=== PATIENT | female | born 1940 | race African-American/Black ===

== ENCOUNTER 2018-08-18 00:58 | Outpatient (CLI) | payer MEDICARE ==
[2018-08-18 12:52] LABS: #Eosinphils 0.1 thou/uL (0.0-0.7); #Lymphocytes 0.9 thou/uL (1.20-3.40); #Monocytes 0.6 thou/uL (0.11-0.59); #Neutrophils 5.6 thou/uL (1.40-6.50); %Basophils 0.1 % (0.0-1.0); %Eosinophils 1.1 % (0.0-10.0); %Lymphocytes 12.2 % (21.0-51.0); %Monocytes 8.2 % (0.0-10.0); %Neutrophils 78.4 % (42.0-75.0); Hemoglobin 11.8 g/dL (12.0-16.0); Mean Corpuscular HGB CONC 31.3 g/dL (32.0-36.0); Mean Corpuscular Hemoglobin 28.5 pg (27.0-31.0); Mean Corpuscular Volume 90.9 fL (78.0-98.0); Mean Platelet Volume 7.6 fL (7.4-10.4); Platelet Count 216 thou/uL (130-400); RBC Distribution Width 13.1 % (11.5-14.5); Red Blood Cell (RBC) Count 4.15 mill/uL (4.20-5.40); White Blood Cell (WBC) Count 7.2 thou/uL (4.8-10.8)
[2018-08-18 13:16] LABS: Anion Gap 12 mmol/L (10-20); BUN (Urea Nitrogen) 12 mg/dL (9.8-20.1); Calc. Creatinine Clearance 0 mL/min (70-130); Calcium 9.8 mg/dL (7.8-10.44); Carbon Dioxide 27 mmol/L (23-31); Chloride 102 mmol/L (98-107); Estimated GFR-MDRD 49; Glucose 122 mg/dL (83-110); Potassium 3.8 mmol/L (3.5-5.1); Sodium 137 mmol/L (136-145)
== END 2018-08-18 00:59 | disposition home or self-care (01) ==
LOC: LABBT 00:58
PROVIDERS: ATTEND Orthopaedic Surgery
DX: Z01.818 Encounter for other preprocedural examination (principal); G56.03 Carpal tunnel syndrome, bilateral upper limbs
CPT/HCPCS: 80048; 85025; 93005; 93010

== ENCOUNTER 2018-08-19 05:46 | Day surgery (SDC) | payer MEDICARE ==
--- NOTE | 2018-08-18 09:28 | HP ---
HISTORY OF PRESENT ILLNESS: The patient is a 78-year-old female with a greater than 1-year history of pain and tingling in both hands, right greater than left without injury. She has numbness in the median nerve distribution and has had persistent symptoms despite rest, restriction of activities, anti-inflammatory medications, splinting, and cortisone injections of the carpal tunnels. Symptoms are now interfering with sleep and day-to-day activities. PAST MEDICAL HISTORY: The patient has history of diabetes, hypertension, hyperlipidemia, and nontoxic goiter. CURRENT MEDICATIONS: Include, 1. Lipitor. 2. Pioglitazone. 3. Amlodipine and valsartan. 4. Calcium and vitamin D. 5. Vitamin B12. 6. Evista. 7. Atenolol. 8. Fish oil. 9. Low-dose aspirin. 10. Multivitamins. 11. Lisinopril. 12. Diclofenac. ALLERGIES: SHE HAS NO KNOWN ALLERGIES. FAMILY HISTORY: Otherwise unremarkable. SOCIAL HISTORY: Otherwise unremarkable. REVIEW OF SYSTEMS: Otherwise unremarkable. PHYSICAL EXAMINATION: GENERAL: A healthy elderly female. HEENT: Unremarkable. NECK: Supple. CHEST: Clear. HEART: Regular rate and rhythm. ABDOMEN: Soft and nontender. PELVIC: Deferred. RECTAL: Deferred. BREASTS: Deferred. EXTREMITIES: Pertinent findings are related to both wrists. There is no definite atrophy. There is no swelling. She has full range of motion bilaterally. She has a positive Tinel sign and negative Phalen test bilaterally. There is subjective numbness in the median nerve distribution, right greater than left. No definite motor deficit. There are palpable distal pulses. Good capillary refill. No instability. DIAGNOSTIC DATA: Electrodiagnostic studies revealed moderate to severe bilateral carpal tunnel syndrome. IMPRESSION: Bilateral carpal tunnel syndrome, right symptomatic more than left. PLAN: Endoscopic possible open right carpal tunnel release. She will require a staged procedure on the left side when she has recovered from the right. The nature of the surgery, length of recovery, and potential complications such as infection, loss of motion, incomplete relief, nerve injury, recurrence, and need for additional treatment and repeat surgery have been discussed in detail. Job ID: [id number]
[2018-08-18 10:28] VITALS: BMI 30.7
[2018-08-19] MEDS ORDERED: CEFAZOLIN 2 GM/50 ML BAG ONE (06:44)
[2018-08-19] MEDS ORDERED: Lidocaine 1% w/Epinephrine 1:100K 20 ML VIAL ONE (06:48)
[2018-08-19] MEDS ORDERED: Lidocaine 1% (PF) 30 ML VIAL ONE (06:48)
[2018-08-19] MEDS ORDERED: Fentanyl 100 MCG/2 ML VIAL ONE (07:24)
[2018-08-19] MEDS ORDERED: Midazolam HCl 2 mg/2 ml Vial ONE (07:24)
--- NOTE | 2018-08-19 09:09 | OP ---
DATE OF PROCEDURE: 08/19/2018 ANESTHESIA: Local plus TIVA. PREOPERATIVE DIAGNOSIS: Right carpal tunnel syndrome. POSTOPERATIVE DIAGNOSIS: Right carpal tunnel syndrome. PROCEDURES PERFORMED: Right endoscopic carpal tunnel release. DESCRIPTION OF PROCEDURE: After satisfactory anesthesia was induced in supine position, the patient was prepped and draped in routine sterile fashion. A field block with 1% lidocaine 10 mL was performed. Right arm was elevated and exsanguinated with an Esmarch bandage and the tourniquet was inflated to 250 mmHg. A 2-cm transverse incision was made in the proximal wrist flexion crease carried down through the subcutaneous tissues. Bleeding points were controlled with Bovie cautery. Using sharp and blunt dissection, a distally based flap at the deep forearm fascia was developed and retracted distally. Palmaris longus tendon was retracted radially. Proximal edge of the deep forearm fascia was split under direct visualization with small scissors to make sure there was no proximal impingement of the median nerve. Synovial elevator was introduced beneath the transverse carpal ligament and the synovium was cleaned from the under surface. Carpal tunnel dilators were inserted. The [employer] endoscopic carpal tunnel system was introduced beneath the transverse carpal ligament in line with the ring finger. The distal edge of the ligament was easily identified and then divided in a distal to proximal direction by pulling the trigger of the assembly and engaging the knife and withdrawing the scope proximally. This was done at several stages to make sure there was complete division of the transverse carpal ligament, which was documented with the video printer. After withdrawing the scope, the carpal tunnel dilator could be inserted into the carpal tunnel with markedly improved passage and subcutaneous position of the instrument. The scope was reintroduced into the carpal tunnel. There was wide separation of the two leaves of the transverse carpal ligament. The tourniquet was released after 4 minutes. There was no excessive bleeding when the scope was withdrawn. The wound was irrigated and then closed with running subcuticular 3-0 nylon and Steri-Strips. Sterile dressing was applied and the patient immobilized in a Velcro wrist splint. She was awakened and taken to the operating room in stable condition. There were no apparent intraoperative complications. The estimated blood loss was negligible. The patient will be discharged home in satisfactory condition with an ice elevation and given written wound care instructions. She was given prescription for tramadol for pain, 30 tablets. She will be rechecked in my office in 10 to 14 days or sooner if there are any problems prior to that time. Job ID: [id number]
[2018-08-19] MEDS ORDERED: PROPOFOL 200 MG/20 ML VIAL ONE (13:08)
== END 2018-08-19 09:15 | disposition home or self-care (01) ==
LOC: SDC 05:46
PROVIDERS: ATTEND Orthopaedic Surgery
PROC: 01N54ZZ Release Median Nerve, Percutaneous Endoscopic Approach (ICD-10-PCS; principal; 2018-08-19)
DX: G56.03 Carpal tunnel syndrome, bilateral upper limbs (principal); I10 Essential (primary) hypertension; E11.9 Type 2 diabetes mellitus without complications; E78.5 Hyperlipidemia, unspecified; E04.9 Nontoxic goiter, unspecified; Z79.82 Long term (current) use of aspirin; Z79.899 Other long term (current) drug therapy
CPT/HCPCS: J2001; J2250; J3010

== ENCOUNTER 2019-02-09 12:48 | Outpatient (CLI) | payer MEDICARE ==
[2019-02-09 13:45] LABS: #Basophils 0.1 thou/uL (0.0-0.2); #Eosinphils 0.1 thou/uL (0.0-0.7); #Lymphocytes 2.6 thou/uL (1.20-3.40); #Monocytes 0.3 thou/uL (0.11-0.59); #Neutrophils 2.1 thou/uL (1.40-6.50); %Basophils 1.2 % (0.0-1.0); %Eosinophils 2.5 % (0.0-10.0); %Monocytes 6.5 % (0.0-10.0); %Neutrophils 40.7 % (42.0-75.0); Mean Corpuscular HGB CONC 31.5 g/dL (32.0-36.0); Mean Corpuscular Hemoglobin 27.9 pg (27.0-31.0); Mean Corpuscular Volume 88.5 fL (78.0-98.0); Mean Platelet Volume 7.3 fL (7.4-10.4); Platelet Count 239 thou/uL (130-400); RBC Distribution Width 12.7 % (11.5-14.5); Red Blood Cell (RBC) Count 4.29 mill/uL (4.20-5.40); White Blood Cell (WBC) Count 5.2 thou/uL (4.8-10.8)
[2019-02-09 14:08] LABS: Anion Gap 13 mmol/L (10-20); BUN (Urea Nitrogen) 17 mg/dL (9.8-20.1); Calc. Creatinine Clearance 0 mL/min (70-130); Calcium 10.4 mg/dL (7.8-10.44); Carbon Dioxide 27 mmol/L (23-31); Chloride 104 mmol/L (98-107); Estimated GFR-MDRD 63; Glucose 81 mg/dL (83-110); Potassium 3.7 mmol/L (3.5-5.1); Sodium 140 mmol/L (136-145)
--- NOTE | 2019-02-09 18:56 | EKG ---
Test Reason : Blood Pressure : / mmHG Vent. Rate : 057 BPM Atrial Rate : 057 BPM P-R Int : 170 ms QRS Dur : 082 ms QT Int : 466 ms P-R-T Axes : 054 035 039 degrees QTc Int : 453 ms Sinus bradycardia Otherwise normal ECG When compared with ECG of 18-AUG-2018 11:20, T wave inversion no longer evident in Inferior leads Confirmed by KELLEN BARKSDALE, DR. Silver ([id number]) on 02/09/2019 6:55:57 PM Referred By: CHALO Confirmed By:DR. Adrianne FOREMAN MD
== END 2019-02-09 12:49 | disposition home or self-care (01) ==
LOC: LABBT 12:48
PROVIDERS: ATTEND Orthopaedic Surgery
DX: Z01.818 Encounter for other preprocedural examination (principal); G56.02 Carpal tunnel syndrome, left upper limb
CPT/HCPCS: 80048; 85025; 93005; 93010

== ENCOUNTER 2019-02-17 06:04 | Day surgery (SDC) | payer MEDICARE ==
[2019-02-09 13:07] VITALS: BMI 29.9
--- NOTE | 2019-02-16 08:31 | HP ---
HISTORY OF PRESENT ILLNESS: The patient is a 78-year-old female with a long history of bilateral carpal tunnel syndrome, unresponsive to conservative treatment including splinting, injections, and anti-inflammatory medications. She underwent right carpal tunnel release approximately 6 months ago and has gradually improved, but continues to have symptoms on the left side with pain and tingling in the median nerve distribution. PAST HISTORY: Please see the old chart. The patient has history of diabetes, hypertension, hyperlipidemia, and nontoxic goiter. MEDICATIONS: Include; 1. Lipitor. 2. Pioglitazone. 3. Amlodipine. 4. Valsartan. 5. Calcium. 6. Multivitamins. 7. Atenolol. 8. Fish oil. 9. Low-dose aspirin. 10. Lisinopril. 11. Diclofenac. ALLERGIES: SHE HAS NO KNOWN ALLERGIES. FAMILY HISTORY: Otherwise, unremarkable. SOCIAL HISTORY: Otherwise, unremarkable. REVIEW OF SYSTEMS: Otherwise, unremarkable. PHYSICAL EXAMINATION: GENERAL: Reveals an elderly healthy female. HEENT: Unremarkable. NECK: Supple. CHEST: Clear. HEART: Regular rate and rhythm. ABDOMEN: Soft and nontender. PELVIC, RECTAL, AND BREAST: Deferred. EXTREMITIES: Pertinent findings related to the left wrist, there is slight thenar atrophy. There is full range of motion. There is a positive Tinel's sign. Negative Phalen's test. There is decreased sensation in median nerve distribution. There is questionable weakness of thumb opposition. There is good capillary refill. DIAGNOSTIC STUDIES: The diagnostic studies by Dr. Bryant reveal [id number]-li-flchac carpal tunnel syndrome. IMPRESSION: 1. Left carpal tunnel syndrome. 2. Status post right carpal tunnel release. 3. Diabetes. 4. Hypertension. PLAN: Endoscopic possible open left carpal tunnel release. The nature of the surgery, length of recovery, and potential complications such as infection, loss of motion, incomplete relief, nerve injury, recurrence, need for additional treatment, and repeat surgery have been discussed in detail. Job ID: [id number]
[2019-02-17] MEDS ORDERED: ceFAZolin Sodium (SDC) 2 GM/100 ML BAG ONE (06:18)
[2019-02-17] MEDS ORDERED: Lidocaine 1% (PF) 30 ML VIAL ONE (06:43)
--- NOTE | 2019-02-17 08:39 | OP ---
DATE OF PROCEDURE: 02/17/2019 PREOPERATIVE DIAGNOSIS: Left carpal tunnel syndrome. POSTOPERATIVE DIAGNOSIS: Left carpal tunnel syndrome. PROCEDURE PERFORMED: Left endoscopic carpal tunnel release. ANESTHESIA: General. DESCRIPTION OF PROCEDURE: After satisfactory anesthesia was induced in supine position, the patient was prepped and draped in the routine manner. Skin incision site was injected approximately with 1 mL of 1% lidocaine and a field block with 9 mL of 1% lidocaine was performed. The left arm was elevated and exsanguinated with an Esmarch bandage and tourniquet inflated to 250 mmHg. A 2-cm transverse incision was made in the proximal wrist flexion crease, carried down to the subcutaneous tissues. Bleeding points were controlled with Bovie cautery. Using sharp and blunt dissection, the distally-based flap of the deep forearm fascia was developed and retracted distally. Palmaris longus tendon was retracted radially. The proximal edge of the deep forearm fascia was split under direct visualization with small scissors to make sure there was no proximal impingement of the median nerve. Synovial elevator was introduced beneath the transverse carpal ligament. The synovium was cleaned from the under surface. Carpal tunnel dilators were inserted. The [employer] endoscopic carpal tunnel system was introduced beneath the transverse carpal ligament in-line with the ring finger. The distal edge of the ligament was easily identified and divided in a distal to proximal direction by pulling the trigger of the assembly and engaging the knife and withdrawing the scope proximally. This was done in several stages to make sure there was complete division of the transverse carpal ligament, which was documented with video printer. After withdrawing the scope, a carpal tunnel dilator could be inserted in the carpal tunnel and there was markedly improved passage with subcutaneous position of the instrument. The scope was re-entered to the carpal tunnel. There was wide separation of the 2 leaves of the transverse carpal ligament. The tourniquet was released after 6 minutes. There was no excessive bleeding and the scope was withdrawn. The wound was thoroughly irrigated and then closed with running subcuticular 3-0 nylon. Sterile dressing was applied. The patient immobilized in a Velcro wrist splint. She was awakened and taken to the recovery room in stable condition. There were no apparent intraoperative complications. The estimated blood loss was negligible. The patient will be discharged home in satisfactory condition, instructed on ice and elevation, given written wound care instructions. She was given a script for tramadol 50 mg 24 tabs with one refill. She will be seen back in my office in 10 to 14 days or sooner if there are any problems prior to that time. Job ID: [id number]
== END 2019-02-17 09:15 | disposition home or self-care (01) ==
LOC: SDC 06:04
PROVIDERS: ATTEND Orthopaedic Surgery
PROC: 01N54ZZ Release Median Nerve, Percutaneous Endoscopic Approach (ICD-10-PCS; principal; 2019-02-17)
DX: G56.02 Carpal tunnel syndrome, left upper limb (principal); I10 Essential (primary) hypertension; E11.9 Type 2 diabetes mellitus without complications; E78.5 Hyperlipidemia, unspecified; Z79.899 Other long term (current) drug therapy; Z79.82 Long term (current) use of aspirin; Z79.84 Long term (current) use of oral hypoglycemic drugs; Z98.890 Other specified postprocedural states
CPT/HCPCS: J0690; J2001

== ENCOUNTER 2020-06-08 06:40 | Outpatient (CLI) | payer MEDICARE ==
[2020-06-08 19:02] LABS: SARS-CoV-2 MS2 Positive; SARS-CoV-2 N Gene Negative; SARS-CoV-2 S Gene Negative; SARS-CoV-2 by NAA Not Detected (NotDetected); SARS-CoV-2 orf1ab Negative
== END 2020-06-08 06:41 | disposition home or self-care (01) ==
LOC: LABBT 06:40
PROVIDERS: ATTEND Internal Medicine Gastroenterology
DX: K92.2 Gastrointestinal hemorrhage, unspecified (principal); Z20.828 Contact with and (suspected) exposure to other viral communicable diseases
CPT/HCPCS: 87635; U0003

== ENCOUNTER 2020-06-13 07:25 | Day surgery (SDC) | payer MEDICARE ==
[2020-06-12 09:16] VITALS: BMI 28.1
--- NOTE | 2020-06-13 01:51 | HP ---
HISTORY OF PRESENT ILLNESS: 80-year-old female, referred to me for anemia. The patient had history of colon polyps several years ago. The patient had no h/o tarry stool. Had stool testing done for occult blood which came back positive. The patient is undergoing colonoscopy because of anemia and occult GI bleeding. MEDICAL ILLNESS: 1. Hypertension. 2. Diabetes mellitus. 3. Hyperlipidemia. 4. Coronary artery disease. 5. Diverticular disease. 6. Colon polyp. ALLERGIES: NONE. PHYSICAL EXAMINATION: VITAL SIGNS: Weight is 187 pounds, pulse is 70, blood pressure 130/76. CARDIOVASCULAR SYSTEM: Normal heart sounds. LUNGS: Clear to auscultation. ABDOMEN: Soft. No organomegaly. No tenderness. No masses. EXTREMITIES: Reveal no edema. ADMITTING DIAGNOSIS: 80-year-old female with anemia, occult gastrointestinal bleeding, history of colon polyp. PLAN: Colonoscopy. Job ID: [id number] MTDD
[2020-06-13] MEDS ORDERED: Lidocaine 1% PF 5 ML VIAL ONE (10:23)
[2020-06-13] MEDS ORDERED: PROPOFOL 200 MG/20 ML VIAL ONE (10:23)
[2020-06-13] MEDS ORDERED: PHENYLEPHRINE-NS 100 MCG/ML 10 ML SYRINGE ONE (10:23)
--- NOTE | 2020-06-14 07:46 | OP ---
DATE OF PROCEDURE: 06/13/2020 OPERATIVE PROCEDURE: Colonoscopy with biopsy. PREOPERATIVE DIAGNOSES: Anemia, occult gastrointestinal bleeding. POSTOPERATIVE DIAGNOSES: 1. Sigmoid diverticular disease. 2. A 6 cm sessile hepatic flexure polyp. 3. Small hemorrhoids. DESCRIPTION OF PROCEDURE: The patient was placed on her left lateral position and was given sedation by Anesthesia Department. A rectal exam was done before the scope was advanced into the rectum. No lesions felt on rectal exam. A Pentax videocolonoscope was introduced into the rectum and advanced up to the cecum. The patient had redundant sigmoid colon. The prep was good except for areas of solid fecal material intermittent in the colon. The appendiceal orifice, ileocecal valve, and cecum well seen. No pathology seen. The ascending colon, no lesion seen. The hepatic flexure showed a 6 cm sessile polyp. The polyp was removed completely with biopsy forceps. In the transverse colon, splenic flexure, and descending colon, no lesion seen. The sigmoid colon showed scattered diverticula. Retroflexion of scope in the rectum showed small hemorrhoids. DISCHARGE PLANNING: An 80-year-old female with anemia, occult GI bleeding. She underwent colonoscopy with removal of polyp. DISCHARGE RECOMMENDATION: 1. High-fiber diet. 2. She is advised to call me if she develops abdominal pain, hematochezia, or fever. 3. To come back to clinic in 2 weeks. Job ID: [id number]
== END 2020-06-13 11:50 | disposition home or self-care (01) ==
LOC: SDC 07:25
PROVIDERS: ATTEND Internal Medicine Gastroenterology
PROC: 0DBL8ZX Excision of Transverse Colon, Via Natural or Artificial Opening Endoscopic, Diagnostic (ICD-10-PCS; principal; 2020-06-13)
DX: D64.9 Anemia, unspecified (principal); D12.3 Benign neoplasm of transverse colon; K57.30 Diverticulosis of large intestine without perforation or abscess without bleeding; K64.9 Unspecified hemorrhoids; I10 Essential (primary) hypertension; E11.9 Type 2 diabetes mellitus without complications; E78.5 Hyperlipidemia, unspecified; I25.10 Atherosclerotic heart disease of native coronary artery without angina pectoris; Z86.010 Personal history of colon polyps; Z79.82 Long term (current) use of aspirin; Z79.899 Other long term (current) drug therapy
CPT/HCPCS: 88305; J2704

== ENCOUNTER 2020-07-02 20:22 | Emergency (ER) | payer MEDICARE ==
[2020-07-02 21:16] LABS: Band 1 % (5-11); Hemoglobin 10.5 g/dL (12.0-16.0); Lymphocytes 20 % (21-51); MDiff Complete? YES; Mean Corpuscular HGB CONC 32.5 g/dL (32.0-36.0); Mean Corpuscular Hemoglobin 29.3 pg (27.0-31.0); Mean Corpuscular Volume 90.4 fL (78.0-98.0); Mean Platelet Volume 7.3 fL (7.4-10.4); Monocytes 10 % (0-10); Neutrophil 68 % (42-75); Platelet Count 274 thou/uL (130-400); Platelet Morphology Comment Appears Adequate; RBC Distribution Width 12.3 % (11.5-14.5); Reactive Lymphocytes 1 % (0-10); Red Blood Cell (RBC) Count 3.58 mill/uL (4.20-5.40); White Blood Cell (WBC) Count 5.7 thou/uL (4.8-10.8)
[2020-07-02 21:30] LABS: ALT (SGPT) 16 U/L (8-55); AST (SGOT) 37 U/L (5-34); Albumin 3.9 g/dL (3.4-4.8); Alkaline Phosphatase 31 U/L (40-110); Anion Gap 16 mmol/L (10-20); BUN (Urea Nitrogen) 17 mg/dL (9.8-20.1); Bilirubin, Total 1.1 mg/dL (0.2-1.2); Calc. Creatinine Clearance 0 mL/min (70-130); Calcium 9.3 mg/dL (7.8-10.44); Carbon Dioxide 26 mmol/L (23-31); Chloride 99 mmol/L (98-107); Globulin 4.1 g/dL (2.4-3.5); Glucose 103 mg/dL (83-110); Potassium 3.7 mmol/L (3.5-5.1); Sodium 137 mmol/L (136-145)
[2020-07-02] MEDS ORDERED: Ondansetron PF 4 MG/2 ML Vial ONE (22:08)
--- NOTE | 2020-07-02 22:14 | RAD ---
RADIOGRAPH CHEST 1 VIEW: DATE: 07/02/2020 HISTORY: 80-year-old female with productive cough COMPARISON: 03/30/2018 FINDINGS: There are no airspace densities, pulmonary edema, pneumothorax, or cardiomegaly. The lateral costophr enic angles are sharp. Significantly elevated right hemidiaphragm. Thin transversely oriented platelike density consistent with mild chronic subsegmental atelectasis al honey the elevated right hemidiaphragm. No interval change overall. Dextroscoliosis of lumbar spine and compensatory levoscoliosis at lower t horacic spine. IMPRESSION: 1. Chronically elevated right hemidiaphragm. 2. Scoliosis. 3. No acute cardiopulmonary findings.
[2020-07-03 04:23] LABS: SARS-CoV-2 by NAA DETECTED (NotDetected)
[2020-07-03 04:24] LABS: SARS-CoV-2 MS2 Positive; SARS-CoV-2 N Gene Positive; SARS-CoV-2 S Gene Positive; SARS-CoV-2 orf1ab Positive
== END 2020-07-03 00:30 | disposition home or self-care (01) ==
LOC: ERS 20:22
DX: U07.1 COVID-19 (principal); R11.2 Nausea with vomiting, unspecified; E11.9 Type 2 diabetes mellitus without complications; I10 Essential (primary) hypertension; E78.5 Hyperlipidemia, unspecified
CPT/HCPCS: 71045; 80053; 84484; 85025; 93005; 94760; U0003; 36415; 87635; 96374; J2405

== ENCOUNTER 2025-02-04 08:11 | Emergency (ER) | payer MEDICARE ==
[2025-02-04 08:59] LABS: #Basophils 0.04 10x3/uL (0.0-0.2); #Eosinophils 0.13 10x3/uL (0.0-0.7); #Monocytes 0.39 10x3/uL (0.11-0.59); #Neutrophils 2.69 10x3/uL (1.40-6.50); %Basophils 0.8 % (0.0-1.0); %Eosinophils 2.5 % (0.0-10.0); %Lymphocytes 36.4 % (21.0-51.0); %Monocytes 7.6 % (0.0-10.0); %Neutrophils 52.7 % (42.0-75.0); Hematocrit 37.5 % (36.0-47.0); Hemoglobin 11.9 g/dL (12.0-16.0); Mean Corpuscular Hemoglobin 28.5 pg (27.0-31.0); Mean Corpuscular Volume 89.7 fL (78.0-98.0); Platelet Count 214 10x3/uL (130-400); Red Blood Cell (RBC) Count 4.18 mill/uL (4.20-5.40); White Blood Cell (WBC) Count 5.11 10x3/uL (4.8-10.8)
[2025-02-04 09:11] LABS: ALT (SGPT) 14 U/L (Less than 34); AST (SGOT) 31 U/L (11-34); Albumin 3.6 g/dL (3.1-4.5); Alkaline Phosphatase 42 U/L (40-110); Anion Gap 14 mmol/L (10-20); BUN (Urea Nitrogen) 13 mg/dL (9.8-20.1); Bilirubin, Total 0.9 mg/dL (0.3-1.2); Calc. Creatinine Clearance 0 mL/min (70-130); Calcium 9.4 mg/dL (7.8-10.44); Carbon Dioxide 22 mmol/L (23-31); Chloride 106 mmol/L (98-107); Globulin 4.0 g/dL (2.4-3.5); Glucose 113 mg/dL (83-110); Magnesium 1.8 mg/dL (1.6-2.6); Potassium 3.5 mmol/L (3.5-5.1); Sodium 138 mmol/L (136-145)
[2025-02-04 09:29] LABS: INR-International Normal Ratio 1.2; Prothrombin Time 14.9 sec (12.0-14.7)
[2025-02-04 09:30] LABS: PTT 38.5 sec (22.9-36.1)
== END 2025-02-04 12:04 | disposition home or self-care (01) ==
LOC: ERS 08:11
DX: K62.5 Hemorrhage of anus and rectum (principal); K62.89 Other specified diseases of anus and rectum; K64.9 Unspecified hemorrhoids; D64.9 Anemia, unspecified; I10 Essential (primary) hypertension; E11.9 Type 2 diabetes mellitus without complications; E78.5 Hyperlipidemia, unspecified; Z79.82 Long term (current) use of aspirin; Z79.899 Other long term (current) drug therapy
CPT/HCPCS: 80053; 83735; 85025; 85610; 85730; 86850; 86900; 86901; 93005; 99283